=== PATIENT | female | born 1940 | race Hispanic/Latino ===

== ENCOUNTER → 2021-12-31 | Outpatient (CLI) | payer OTHER | END | disposition home or self-care (01) | LOC: RAH 10:32 | PROVIDERS: ATTEND Family Medicine | DX: Z13.6 Encounter for screening for cardiovascular disorders (principal) | CPT/HCPCS: 75571 ==

== ENCOUNTER 2025-06-09 12:29 | Emergency (ER) | payer MEDICARE, MEDICAID ==
[~2025-06-09] VITALS: Ht 162.6 cm; Wt 94.3 kg
[2025-06-09] MEDS: L.E.T. GEL 3ML SYG TP ONE (13:40)
[2025-06-09] MEDS ORDERED: BACI30OI6 TP (14:05)
--- NOTE | 2025-06-09 14:05 | ERN ---
General Chief Complaint: Laceration/Avulsion Stated Complaint: LT 3RD FINGER LAC Time Seen by MD: 12:32 Time Seen by Midlevel: 12:32 Source: patient History of Present Illness Initial Comments 84-year-old female presents to the emergency department due to laceration to the finger that occurred yesterday. Patient was closing a cabinet and caught her finger between the cabinet and drawer. Patient is on Plavix. Denies further symptoms. PMHx arthritis, DM, hypercholesterolemia, HTN. Last tetanus vaccination was three years ago. Allergies: Coded Allergies: No Known Drug Allergies (Unverified Allergy, Unknown, 06/09/25) Home Meds Active Scripts Bacitracin (Bacitracin) 500 Unit/Gram Oint...g., 1 APPL TP BID for 7 Days, #15 GM 0 Refills apply to affected area(s) Prov:OZ COLLINS 06/09/25 Past Medical History Past Medical History: Arthritis, Diabetes-Type II, High Cholesterol, Heart Disease, Hypertension Medical History Other: OSTEO Past Surgical History: Cholecystectomy ROS Dictation Constitutional: Negative for fever,chills, and weight loss Eyes: Negative for injury, pain,redness, and discharge ENT: Negative for injury,pain or swelling Cardiovascular: Negative for chest pain, palpitations, and edema Respiratory: Negative for shortness of breath, cough, and wheezing, Abdomen/GI: Negative for abdominal pain, nausea, vomiting, diarrhea, and constipation Back: Negative for injury and pain : Negative for painful urination, bleeding or discharge MS/Extremity: Negative for injury and deformity Skin: Positive for skin avulsion of the finger Negative for rash, and discolo ration. Neuro: Negative for headache, weakness, numbness, tingling, and seizure Psych: Negative for suicide ideation, homicidal ideation, and hallucinations Physical Exam Physical Exam Dictation General: awake, alert, no acute distress Head/Face: Normocephalic, atraumatic Eyes: PERRL, EOMI, normal conjunctiva ENT: oral cavity clear, oral mucosa moist Neck: Supple, normal range of motion Cardiovascular: RRR, normal S1/S2 Respiratory: CTAB, no respiratory distress Skin: Warm, dry, normal turgor, no rash. Left hand 3rd digit 3 cm skin avulsion on the distal aspect. MS/Extremity: Pulses equal, no cyanosis, neurovascular intact, FROM Neuro: COAx4, GCS 15, strength 5/5, CN 2-12 intact, normal cerebellar exam, normal gait Psych: Normal behavior, mood, and affect normal MDM MDM: Differential diagnosis: Avulsion, laceration Rationale: 84-year-old female presents to the emergency department due to laceration to the finger that occurred yesterday. Patient was closing a cabinet and caught her finger between the cabinet and drawer. Patient is on Plavix. Denies further symptoms. PMHx arthritis, DM, hypercholesterolemia, HTN. Last tetanus vaccination was three years ago. Per physical examination minimal active bleeding noted, skin avulsion measuring 3 cm of the 3rd left digit palmar distal aspect, normal range of motion of the finger, neurovascularly intact. Quick clot placed in the bleeding stopped. LFT placed for pain. Patient was educated on findings and diagnosis. Advised to follow up with PCP. Return to the emergency department for any worsening symptoms. Patient verbalized understanding. Patient stable for discharge. There are no social concerns with this patient. I independently interpreted the test that were performed, results were reviewed by me and considered findings on radiology if ordered. Medical management and examination interpretation discussions were had by me with other qualified healthcare professionals as indicated for the patient's care. ED Course Orders Procedure Category Date Status Time L.E.T. Gel 3ml Syg PHA 06/09/25 Complete (L.E.T. Gel 3ml Syg) 13:30 Current Medications Medications (Trade) Dose Ordered Sig/Cheryl Route PRN Reason Start Time Stop Time Status Last Admin Dose Admin Lidocaine/ Epinephrine (L.e.t. Gel 3ml Syg) 3 ml ONCE ONCE TP 06/09/25 13:30 06/09/25 13:31 DC 06/09/25 13:40 Vital Signs Date Time Temp Pulse Resp B/P (MAP) Pulse Ox O2 Delivery O2 Flow Rate FiO2 06/09/25 14:09 98.2 78 16 146/55 98 Room Air* 0 06/09/25 12:53 98.2 75 16 145/55 98 Room Air* 0 21 06/09/25 12:31 98.1 77 16 145/53 96 Room Air 0 DX & DISP Disposition: Discharge Departure Impression: Primary Impression: Skin avulsion Condition: Stable Scripts Bacitracin (Bacitracin) 500 Unit/Gram Oint...g. 1 APPL TP BID for 7 Days, #15 GM 0 Refills apply to affected area(s) Prov: OZ COLLINS 06/09/25 Additional Instructions: Discharge home. Rest. Follow up with primary care DrDereje in 24 hours. Return to the ER for any acute changes or worsening symptoms. If any medications were prescribed take as directed. Okay to continue home medications unless otherwise discussed during your visit in the emergency room today. Patient was also advised to follow-up with primary care physician in 1 to 2 days for continued monitoring. Referrals: ITZEL LEAL MD (PCP) I performed the substantive portion of the visit. I have reviewed and personally made and approve the management plan that is documented in the notes by myself or the IRMA. I acknowledge full responsibility for the patient's management plan. OZ COLLINS Jun 09, 2025 14:05
[2025-06-09 14:09] VITALS: BP 146/55; PULSE 78; RESP 16; TEMP 98.3; O2SAT 98
== END 2025-06-09 14:12 | disposition home or self-care (01) ==
LOC: EDH 12:29
DX: S61.213A Laceration without foreign body of left middle finger without damage to nail, initial encounter (principal); E78.00 Pure hypercholesterolemia, unspecified; E11.9 Type 2 diabetes mellitus without complications; I10 Essential (primary) hypertension; Z90.49 Acquired absence of other specified parts of digestive tract; Z79.02 Long term (current) use of antithrombotics/antiplatelets; Z79.899 Other long term (current) drug therapy; W23.0XXA Caught, crushed, jammed, or pinched between moving objects, initial encounter; Y93.89 Activity, other specified; Y92.89 Other specified places as the place of occurrence of the external cause; Y99.8 Other external cause status
CPT/HCPCS: 99282

== ENCOUNTER 2025-07-08 01:15 | Emergency (ER) | payer MEDICARE, MEDICAID ==
[~2025-07-08] VITALS: Ht 160 cm; Wt 94.3 kg
[~2025-07-08 01:15] MED LIST: BACI30OI6 TP
--- NOTE | 2025-07-08 01:44 | ERN ---
ED Note History of Present Illness Stated Complaint: C/O DIZZINESS WITH BLEEDING TO RT EAR Chief Complaint: Earache Time Seen by MD: 01:21 Dictation: 84-YEAR-OLD FEMALE PRESENTS TO ER WITH DAUGHTER COMPLAINS OF RIGHT EAR BLEEDING AND DIZZINESS. PATIENT STATES SHE WAS SITTING WATCHING TV WHEN ALL OF A SUDDEN SHE GOT DIZZY AND HAD A NAUSEA VOMITING EPISODE. THEN SHE NOTED A POP TO HER RIGHT EAR AND HAD BLEEDING FROM IT Allergies: Coded Allergies: No Known Drug Allergies (Unverified Allergy, Unknown, 06/09/25) Home Meds Active Scripts Meclizine HCl (Meclizine HCl) 25 Mg Tablet, 25 MG PO TID for vertigo, #15 TAB 0 Refills Prov:LIZBETH WESTON MD 07/08/25 Prednisone (Prednisone) 20 Mg Tablet, 1 TAB PO AD for 6 Days, #14 TAB 0 Refills TAKE 1 TAB BY MOUTH THREE TIMES PER DAY X3 DAYS, THEN TAKE 1 TAB BY MOUTH TWICE A DAY X2 DAYS, THEN TAKE 1 TAB BY MOUTH ONCE A DAY X1 DAY. Prov:LIZBETH WESTON MD 07/08/25 Cephalexin (Cephalexin) 500 Mg Tablet, 1 TAB PO TID for 10 Days, #30 TAB 0 Refills Prov:LIZBETH WESTON MD 07/08/25 Bacitracin (Bacitracin) 500 Unit/Gram Oint...g., 1 APPL TP BID for 7 Days, #15 GM 0 Refills apply to affected area(s) Prov:OZ COLLINS 06/09/25 Past Medical History Past Medical History: Arthritis, Diabetes-Type II, High Cholesterol, Hypertension Additional Past Medical Hx: OSTEO Surgical History: Cholecystectomy Family History: Negative Social History: Negative History: Not Applicable RN Note Reviewed/Agreed w/PFSH: Yes Review of System Dictation CONSTITUTIONAL: NEGATIVE FOR FEVER,CHILLS, AND WEIGHT LOSS EYES: NEGATIVE FOR INJURY, PAIN,REDNESS, AND DISCHARGE ENT: NEGATIVE FOR INJURY, POSITIVE FOR RIGHT EAR BLEEDING AND PAIN CARDIOVASCULAR: NEGATIVE FOR CHEST PAIN, PALPITATIONS, AND EDEMA RESPIRATORY: NEGATIVE FOR SHORTNESS OF BREATH, COUGH, WHEEZING, AND PLEURITIC CHEST PAIN ABDOMEN/GI: NEGATIVE FOR ABDOMINAL PAIN, DIARRHEA, AND CONSTIPATION. POSITIVE NAUSEA AND VOMITING BACK: NEGATIVE FOR INJURY AND PAIN : NEGATIVE FOR INJURY, BLEEDING AND DISCHARGE MS/EXTREMITY: NEGATIVE FOR INJURY AND DEFORMITY SKIN: NEGATIVE FOR RASH, AND DISCOLORATION NEURO: NEGATIVE FOR HEADACHE, WEAKNESS, NUMBNESS, TINGLING, AND SEIZURE. POSITIVE DIZZINESS PSYCH: NEGATIVE FOR SUICIDE IDEATION, HOMICIDAL IDEATION, AND HALLUCINATIONS ALLERGY/IMMUNOLOGY: NEGATIVE FOR HIVES, RASH, AND ALLERGIES Initial Vital Sign VS Vital Signs Date Time Temp Pulse Resp B/P (MAP) Pulse Ox O2 Delivery O2 Flow Rate FiO2 07/08/25 01:17 97.3 66 20 175/70 97 Room Air 07/08/25 01:53 0 21 Physical Exam Dictation GENERAL: AWAKE, ALERT, NAD HEAD/FACE: NORMOCEPHALIC, ATRAUMATIC EYES: PERRL, EOMI, VISION AT BASELINE ENT: ORAL CAVITY CLEAR, RIGHT TM BULGING, SWOLLEN, ABRASION NOTED WITH DRY BLOOD NECK: TRACHEA MIDLINE, SUPPLE, NO NUCHAL RIGIDITY CARDIOVASCULAR: RRR, NORMAL S1/S2, NO MRGS, NO JVD RESPIRATORY: CTAB, NO RESPIRATORY DISTRESS, NO RALES OR WHEEZES ABDOMEN: SOFT, NON-TENDER, NON-DISTENDED, NORMAL BOWEL SOUNDS, NO GUARDING OR REBOUND. SKIN: WARM, DRY, NORMAL TURGOR, NO RASH MS/EXTREMITY: PULSES EQUAL, NO CYANOSIS, NEUROVASCULAR INTACT, FROM NEURO: COAX4, GCS 15, STRENGTH 5/5 PSYCH: NORMAL BEHAVIOR, MOOD, AND AFFECT NORMAL Results (Laboratory/Radiology) Laboratory/Radiology Laboratory Tests Test 07/08/25 01:42 White Blood Count 4.2 K/uL (4.8-10.8) L Red Blood Count 2.84 MIL/uL (4.00-5.50) L Hemoglobin 9.7 g/dL (12.0-16.0) L Hematocrit 27.9 % (36-48) L Mean Corpuscular Volume 98.2 fL (79-99) Mean Corpuscular Hemoglobin 34.2 pg (27.0-33.0) H Mean Corpuscular Hemoglobin Concent 34.8 g/dL (32.0-36.0) Red Cell Distribution Width 14.1 % (11.0-15.5) Platelet Count 35 K/uL (130-400) L Mean Platelet Volume 12.2 fL (7.5-10.5) H Immature Granulocyte % (Auto) 0.2 % (0-1) Neutrophils (%) (Auto) 77.4 % (40.0-77.0) H Lymphocytes (%) (Auto) 14.4 % (21.0-51.0) L Monocytes (%) (Auto) 7.3 % (3.0-13.0) Eosinophils (%) (Auto) 0.2 % (0.0-8.0) Basophils (%) (Auto) 0.5 % (0.0-5.0) Neutrophils # (Auto) 3.3 K/uL (1.8-7.7) Lymphocytes # (Auto) 0.6 K/uL (1.0-4.8) L Monocytes # (Auto) 0.3 K/uL (0.1-1.0) Eosinophils # (Auto) 0.01 K/uL (0.00-0.70) Basophils # (Auto) 0.02 K/uL (0.00-0.20) Absolute Immature Granulocyte (auto 0.01 K/uL (0-1) Nucleated Red Blood Cells 0.0 % (0.0-0.19) Platelet Morphology Comment See comments Sodium Level 139 mmol/L (136-145) Potassium Level 4.4 mmol/L (3.5-5.1) Chloride Level 106 mmol/L (101-111) Carbon Dioxide Level 27 mmol/L (21-32) Blood Urea Nitrogen 23 mg/dL (7-18) H Creatinine 1.2 mg/dL (0.5-1.0) H Glomerular Filtration Rate Calc 45 mL/min (>90) Random Glucose 192 mg/dL (70-105) H Total Calcium 8.5 mg/dL (8.5-10.1) Total Creatine Kinase 51 U/L (21-232) Troponin I High Sensitivity 8.4 ng/L (4-50) Labs Reviewed?: Yes CT Scan Comment: REASON: dizziness ORDERING PHYSICIAN: CATINA HENNING NP PROCEDURE: HEAD WO - CT HEAD/BRAIN W/O CONTRAST EXAM: Non-contrast CT examination of the Brain CLINICAL HISTORY: Dizziness. TECHNIQUE: Thin collimated axial CT images of the brain were obtained with sagittal and coronal reformatted images also submitted. CT scan is done according to ALARA (As Low as Reasonably Achievable). CONTRAST USED: None. COMPARISON: None provided. FINDINGS: No acute intracranial abnormality is present. No acute cortical infarction, hemorrhage, mass, or mass effect. Mild to moderate generalized brain atrophy and chronic microvascular ischemic white matter disease. Nonspecific dural calcification along the frontal falx. No hydrocephalus or abnormal extra-axial fluid collections. The posterior fossa is unremarkable. The skull base and calvarium are intact. The included portions of the paranasal sinuses and mastoid air cells are clear. IMPRESSION: No acute intracranial abnormality is present. Mild to moderate generalized brain atrophy and chronic microvascular ischemic white matter disease. /[place] ED Course ED Course Orders Procedure Category Date Status Time Cbc With Differential LAB 07/08/25 Complete 01:32 Basic Metabolic Panel LAB 07/08/25 Complete 01:32 Ct Head/Brain W/O CT 07/08/25 Resulted Contrast 01:32 12 Lead Ekg Tracing- EKG 07/08/25 Logged Technical 01:33 Cardiac Panel LAB 07/08/25 Complete 01:42 Ceftriaxone 1g Vial PHA 07/08/25 Complete (Rocephine 1g Inj) 04:00 Methylprednisolone PHA 07/08/25 Complete Succ 40mg (Solu-Medro 04:00 Meclizine Hcl 12.5 Mg PHA 07/08/25 Complete (Antivert 12.5 Mg) 04:00 Current Medications Medications (Trade) Dose Ordered Sig/Cheryl Route PRN Reason Start Time Stop Time Status Last Admin Dose Admin Ceftriaxone Sodium (ROCEphine 1G INJ) 1 gm ONCE ONCE IVPB 07/08/25 04:00 07/08/25 04:01 DC 07/08/25 04:07 Meclizine HCl (ANTIvert 12.5 mg) 12.5 mg ONCE ONCE PO 07/08/25 04:00 07/08/25 04:01 DC 07/08/25 04:07 Methylprednisolone Sodium Succinate (Solu-medROL 40MG) 40 mg ONCE ONCE IVP 07/08/25 04:00 07/08/25 04:01 DC 07/08/25 04:08 Vital Signs Date Time Temp Pulse Resp B/P (MAP) Pulse Ox O2 Delivery O2 Flow Rate FiO2 07/08/25 02:55 61 15 131/61 98 Room Air* 0 21 07/08/25 01:53 98.8 65 14 158/65 99 Room Air* 0 21 07/08/25 01:17 97.3 66 20 175/70 97 Room Air 2:45 a.m. patient was signed out to me by mid-level provider to follow up on the head CT results. This is an 84-year-old female who presented to the emergency room with complaints of bleeding from the right ear and sudden pop in the right ear. Apparently she was watching TV and experienced a sudden pop and felt dizzy had nausea vomitings. Patient's daughter indicated that patient had a hearing aid in the right ear. No history of using any Q-tips or instrumentation. No headache blurred vision diplopia. Temperature 97.3 pulse 61 respirations 20 blood pressure 175 over 70 with a pulse oximetry of 97% on room air Her chronic medical problems include diabetes mellitus, hypertension, hypercholesterolemia and osteoarthritis On exam right ear shows ruptured tympanic membrane Labs reviewed CBC shows a hemoglobin of 9.7 [place] [address] white count 4.2 BNP 7 is significant for a BUN and creatinine of [address] scan of the head-no acute intracranial abnormality but age-appropriate generalized brain atrophy and white matter disease. I updated the patient's daughter and the patient on various causes of ruptured tympanic membrane and bleeding from the right ear. I explained to her that it may simply be due to pressure changes causing the eardrum rupture especially with her hearing aid in place however it is reasonable to treat with antibiotics. Since patient had dizziness and nausea vomitings symptoms, I recommended a short course of steroid and meclizine as needed. Patient has been on Plavix for reasons unknown to the daughter I recommended stopping the Plavix in view of thrombocytopenia. Patient has a primary care physician and I recommended that the daughter should take her mother to the primary care physician to follow up on repeat labs on white count and platelet count. She must hold the Plavix for now until further instructions from her primary care physician based on her platelet count Medical Decision Making MDM A 14 POINTS ROS DONE, PERTINENT POSITIVE AND NEGATIVES DESCRIBED IN HPI; ALL OTHERS NEGATIVE. TIME WAS SPENT ON COUNSELING, REVIEWING MEDICAL RECORDS, REVIEWING THE ENTIRE VISIT DOCUMENTATION (INCLUDING ANY COMMENTS THAT MAY HAVE BEEN GIVEN BY THE PATIENT I.E. THE REVIEW OF SYSTEMS) AND COORDINATION OF CARE LABS EKG AND CT HEAD ORDERED FOR PATIENT. Differential diagnosis: Ruptured tympanic membrane secondary to infection, trauma, pimple, labyrinthitis, pressure changes inside the ear versus outside Rationale: Tests considered and ordered secondary to shared decision making include: Previous outside records reviewed: Old ER visits. Risk of complication and/or morbidity or mortality of patient management: None Medications-Per medication reconciliation Need for hospitalization: Patient does not meet criteria for hospitalization. Need for emergency major/minor surgery: No There are no social concerns with this patient. Prescription drug management Prescriptions will include symptomatic care Patient's prior external medical records from other ER visits were reviewed by me as indicated. Prior testing and results from previous visits were reviewed. Prior tests were taken into account with medical decision making and resource utilization, independent historian/historians were used to obtain complete medical history. I independently interpreted the test that were performed, results were reviewed by me and considered findings on radiology if ordered. Medical management and examination interpretation discussions were had by me with other qualified healthcare professionals as indicated for the patient's care. Problem List Problem List: (1) Tympanic membrane rupture (2) Otitis interna (3) Bleeding from right ear DX & DISP Disposition: Discharge Departure Impression: Primary Impression: Tympanic membrane rupture Additional Impressions: Bleeding from right ear, Otitis interna Condition: Stable Scripts Meclizine HCl (Meclizine HCl) 25 Mg Tablet 25 MG PO TID for vertigo, #15 TAB 0 Refills Prov: LIZBETH WESTON MD 07/08/25 Prednisone (Prednisone) 20 Mg Tablet 1 TAB PO AD for 6 Days, #14 TAB 0 Refills TAKE 1 TAB BY MOUTH THREE TIMES PER DAY X3 DAYS, THEN TAKE 1 TAB BY MOUTH TWICE A DAY X2 DAYS, THEN TAKE 1 TAB BY MOUTH ONCE A DAY X1 DAY. Prov: LIZBETH WESTON MD 07/08/25 Cephalexin (Cephalexin) 500 Mg Tablet 1 TAB PO TID for 10 Days, #30 TAB 0 Refills Prov: LIZBETH WESTON MD 07/08/25 Additional Instructions: Patient and the caregiver have been informed of all the diagnostic tests and the imaging conducted during the today's visit to the emergency room and has verbalized understanding of the results I have personally reviewed and interpreted all diagnostic exams performed here in the ER today as well as the vital signs documented by the nursing staff. The patient is now being discharged to home and should follow up with the primary care physician or the specialist as directed by the ER staff. Follow-up with primary care provider in 1 to 2 days. Take medications as directed here in the emergency room. Okay to continue home medications unless otherwise discussed during your visit in the emergency room today. Return to your nearest emergency room if symptoms worsen or if there is no improvement. Call 911 if you need immediate assistance. Take Tylenol or Motrin [id number] as needed and if no contraindications are present. Increase oral hydration. A wound culture or urine culture was ordered here in the emergency room department please follow-up with primary care provider and advise them to get repeat ports from our facility. If you had any Mitchell wrap/splints that were applied here, please do not remove them until you see your primary care or specialty. Patient has been on Plavix for reasons unknown to the daughter I recommended stopping the Plavix in view of thrombocytopenia. Patient has a primary care physician and I recommended that the daughter should take her mother to the primary care physician to follow up on repeat labs on white count and platelet count. She must hold the Plavix for now until further instructions from her primary care physician based on her platelet count STOP PLAVIX FOR NOW Referrals: ITZEL LEAL MD (PCP) CATINA HENNING NP Jul 08, 2025 01:44 LIZBETH WESTON MD Jul 08, 2025 04:02
[2025-07-08 01:47] LABS: IMMATURE GRANULOCYTE ABSOLUTE 0.01 K/uL (0-1); NUCLEATED RED BLOOD CELLS 0.0 % (0.0-0.19); PLATELET COUNT (AUTO) 35 K/uL (130-400); RED BLOOD CELL COUNT(AUTO) 2.84 MIL/uL (4.00-5.50); RED CELL DISTRIBUTION WIDTH 14.1 % (11.0-15.5); WHITE BLOOD COUNT (AUTO) 4.2 K/uL (4.8-10.8)
[2025-07-08 01:58] LABS: CREATININE 1.2 mg/dL (0.5-1.0); GLOMERULAR FILTR. RATE CALC 45.0 mL/min (>90); GLUCOSE,RANDOM 192.0 mg/dL (70-105); SODIUM SERUM 139.0 mmol/L (136-145); UREA NITROGEN, BLOOD 23.0 mg/dL (7-18)
[2025-07-08 02:06] LABS: CREATINE KINASE, TOTAL 51.0 U/L (21-232)
--- NOTE | 2025-07-08 03:43 | HMCIMG ---
EXAM: Non-contrast CT examination of the Brain CLINICAL HISTORY: Dizziness. TECHNIQUE: Thin collimated axial CT images of the brain were obtained with sagittal and coronal reformatted images also submitted. CT scan is done according to ALARA (As Low as Reasonably Achievable). CONTRAST USED: None. COMPARISON: None provided. FINDINGS: No acute intracranial abnormality is present. No acute cortical infarction, hemorrhage, mass, or mass effect. Mild to moderate generalized brain atrophy and chronic microvascular ischemic white matter disease. Nonspecific dural calcification along the frontal falx. No hydrocephalus or abnormal extra-axial fluid collections. The posterior fossa is unremarkable. The skull base and calvarium are intact. The included portions of the paranasal sinuses and mastoid air cells are clear. IMPRESSION: No acute intracranial abnormality is present. Mild to moderate generalized brain atrophy and chronic microvascular ischemic white matter disease. /[place]
[2025-07-08] MEDS ORDERED: MECL-302 PO (03:57)
[2025-07-08] MEDS ORDERED: CEPH500T PO (03:57)
[2025-07-08] MEDS ORDERED: PRED20TA3 PO (03:57)
[2025-07-08] MEDS: Solu-medROL 40MG VIAL IVP ONE (04:08)
[2025-07-08 04:31] VITALS: BP 155/76; PULSE 61; RESP 13; TEMP 98.5; O2SAT 98
--- NOTE | 2025-07-08 08:54 | EKG ---
[facility] Test Date: 2025-07-08 Test Time: 01:39:44 Pat Name: MONTANA TAMAYO Department: [facility] Room: Gender: F Manager Performance: 1088 : 1940 Requested By: CATINA HENNING Order Number: [id number] Reading MD: Shakeel Overton Measurements Intervals [place] Rate: 68 P: 19 ME: 173 QRS: -44 QRSD: 127 T: 55 QT: 429 QTc: 457 Interpretive Statements Sinus rhythm Left bundle branch block No previous ECG available for comparison Electronically Signed On 07-08-2025 19:45:23 CDT by Shakeel Overton Please click the below link to view image of tracing.
== END 2025-07-08 05:03 | disposition home or self-care (01) ==
LOC: EDH 01:15
DX: H72.91 Unspecified perforation of tympanic membrane, right ear (principal); H83.01 Labyrinthitis, right ear; H92.21 Otorrhagia, right ear; E11.9 Type 2 diabetes mellitus without complications; E78.00 Pure hypercholesterolemia, unspecified; I10 Essential (primary) hypertension; M19.90 Unspecified osteoarthritis, unspecified site; Z90.49 Acquired absence of other specified parts of digestive tract
CPT/HCPCS: 99285; 96365; 70450; 96375; 82550; 84484; 80048; 85025; 36415; 93005; J2919; J0696

== ENCOUNTER 2025-07-14 12:08 | Emergency (ER) | payer MEDICARE, MEDICAID ==
[~2025-07-14] VITALS: Ht 165.1 cm; Wt 93.4 kg
[~2025-07-14 12:08] MED LIST changes: +CEPH500T PO; +MECL-302 PO; +PRED20TA3 PO
--- NOTE | 2025-07-14 12:37 | ERN ---
ED Note History of Present Illness Stated Complaint: EPIGASTRIC PAIN, N/V Chief Complaint: Abdominal Pain Time Seen by MD: 12:26 Dictation: PATIENT IS A 84-YEAR-OLD FEMALE HERE WITH HER DAUGHTER WITH COMPLAINTS OF EPIGASTRIC PAIN WITH NAUSEA VOMITING AND DIARRHEA ONSET YESTERDAY. NO CHEST PAIN NO BACK PAIN NO SOB. PATIENT HAD DAUGHTER DENY ANY FEVER CHILLS NO HISTORY OF CHRONIC DISEASE SUCH GASTRITIS PANCREATITIS. Allergies: Coded Allergies: No Known Drug Allergies (Unverified Allergy, Unknown, 06/09/25) Home Meds Active Scripts Meclizine HCl (Meclizine HCl) 25 Mg Tablet, 25 MG PO TID for vertigo, #15 TAB 0 Refills Prov:LIZBETH WESTON MD 07/08/25 Prednisone (Prednisone) 20 Mg Tablet, 1 TAB PO AD for 6 Days, #14 TAB 0 Refills TAKE 1 TAB BY MOUTH THREE TIMES PER DAY X3 DAYS, THEN TAKE 1 TAB BY MOUTH TWICE A DAY X2 DAYS, THEN TAKE 1 TAB BY MOUTH ONCE A DAY X1 DAY. Prov:LIZBETH WESTON MD 07/08/25 Cephalexin (Cephalexin) 500 Mg Tablet, 1 TAB PO TID for 10 Days, #30 TAB 0 Refills Prov:LIZBETH WESTON MD 07/08/25 Bacitracin (Bacitracin) 500 Unit/Gram Oint...g., 1 APPL TP BID for 7 Days, #15 GM 0 Refills apply to affected area(s) Prov:OZ COLLINS 06/09/25 Past Medical History Past Medical History: Arthritis, Diabetes-Type II, High Cholesterol, Hypertension Additional Past Medical Hx: OSTEO Surgical History: Cholecystectomy Family History: Negative Social History: Negative History: Not Applicable RN Note Reviewed/Agreed w/PFSH: Yes Review of System Dictation CONSTITUTIONAL: NEGATIVE EXCEPT FOR HPI HEAD/FACE: NEGATIVE EXCEPT FOR HPI EENT: NEGATIVE EXCEPT FOR HPI RESPIRATORY: NEGATIVE EXCEPT FOR HPI GASTROINTESTINAL/ABDOMINAL: NEGATIVE EXCEPT FOR HPI NAUSEA VOMITING WITH A EPIGASTRIC PAIN GENITOURINARY: NEGATIVE EXCEPT FOR HPI MUSCULOSKELETAL: NEGATIVE EXCEPT FOR HPI INTEGUMENTARY: NEGATIVE EXCEPT FOR HPI NEUROLOGICAL/PSYCH: NEGATIVE EXCEPT FOR HPI HEMATOLOGIC/LYMPHATIC: NEGATIVE EXCEPT FOR HPI ALL SYSTEMS NEGATIVE, EXCEPT NOTED ABOVE. 13 POINT REVIEW OF SYSTEMS ASSESSED AND ALL NEGATIVE EXCEPT FOR ABOVE. Initial Vital Sign VS Vital Signs Date Time Temp Pulse Resp B/P (MAP) Pulse Ox O2 Delivery O2 Flow Rate FiO2 07/14/25 12:10 98.1 79 16 117/54 97 Room Air 0 07/14/25 12:35 21 Physical Exam Dictation A NORMAL EXAM VITAL SIGNS REVIEWED GENERAL APPEARANCE: ALERT, ORIENTED X 3, MODERATE ACUTE DISTRESS, WELL DEVELOPED, NOURISHED. OBESE HEAD AND FACE: NON-TRAUMATIC. EYES: PERRL, PINK CONJUNCTIVAS, EYELID NO TRAUMA, ANTERIOR CHAMBER WITH ARCUS SENILIS. EARS: PINNAS INTACT AND NO SIGNS OF TRAUMA OR ERYTHEMA EAR CANALS CLEAR AND NO DISCHARGE TM NO ERYTHEMA NOSE: NO DISCHARGE, NO BLEEDING. OROPHARYNX: MOUTH NORMAL, TONGUE PINK, PHARYNX CLEAR,NO ERYTHEMA, TONSILS NO EXUDATES, NO ABSCESSES NOTED, MUCOUS MEMBRANE MOIST NECK: SUPPLE, NON-TENDER, NO THYROMEGALY, NO MASSES, NO JVD, NO BRUITS BREAST:DEFERRED CHEST:NO TENDERNESS, NO CREPITUS, NO PARADOXICAL MOVEMENT, NO RETRACTIONS LUNGS:CLEAR, WELL-VENTILATED, SYMMETRIC, NO RALES, NO WHEEZING, NO RHONCHI, NO STRIDOR, GOOD BREATH SOUNDS BILATERALLY HEART: REGULAR RATE, REGULAR RHYTHM, NO MURMUR, NO GALLOPS VASCULAR: NO PERIPHERAL EDEMA, ABDOMEN: SOFT, POSITIVE BOWEL SOUNDS, NONDISTENDED, NO GUARDING, EPIGASTRIC TENDERNESS WITH PERIUMBILICAL TENDERNESS, NO REBOUND, NO MASSES NO HEPATOMEGALY, NO SPLENOMEGALY, NO BYRNES'S SIGN, NO HERNIAS. RECTAL: DEFERRED GENITAL: DEFERRED NEUROLOGICAL: NORMAL SPEECH, MOTOR FUNCTION INTACT, SENSORY FUNCTION INTACT MUSCULOSKELETAL: NECK NONTENDER, FULL RANGE OF MOTION, BACK NONTENDER, FULL RANGE OF MOTION, EXTREMITIES: NONTENDER, FULL RANGE OF MOTION SKIN: COLOR PINK, DRY, NO TURGOR, NO RASH, NO LACERATIONS, NO ABRASIONS, NO CONTUSIONS. LYMPHATIC: DEFERRED Results (Laboratory/Radiology) Laboratory/Radiology Laboratory Tests Test 07/14/25 12:43 07/14/25 16:49 White Blood Count 8.4 K/uL (4.8-10.8) Red Blood Count 3.29 MIL/uL (4.00-5.50) L Hemoglobin 11.3 g/dL (12.0-16.0) L Hematocrit 31.4 % (36-48) L Mean Corpuscular Volume 95.4 fL (79-99) Mean Corpuscular Hemoglobin 34.3 pg (27.0-33.0) H Mean Corpuscular Hemoglobin Concent 36.0 g/dL (32.0-36.0) Red Cell Distribution Width 14.2 % (11.0-15.5) Platelet Count 50 K/uL (130-400) L Mean Platelet Volume 10.9 fL (7.5-10.5) H Immature Granulocyte % (Auto) 0.4 % (0-1) Neutrophils (%) (Auto) 81.0 % (40.0-77.0) H Lymphocytes (%) (Auto) 9.4 % (21.0-51.0) L Monocytes (%) (Auto) 9.0 % (3.0-13.0) Eosinophils (%) (Auto) 0.0 % (0.0-8.0) Basophils (%) (Auto) 0.2 % (0.0-5.0) Neutrophils # (Auto) 6.8 K/uL (1.8-7.7) Lymphocytes # (Auto) 0.8 K/uL (1.0-4.8) L Monocytes # (Auto) 0.8 K/uL (0.1-1.0) Eosinophils # (Auto) 0.00 K/uL (0.00-0.70) Basophils # (Auto) 0.02 K/uL (0.00-0.20) Absolute Immature Granulocyte (auto 0.03 K/uL (0-1) Nucleated Red Blood Cells 0.0 % (0.0-0.19) White Cell Morphology Comment See comments Sodium Level 139 mmol/L (136-145) Potassium Level 3.5 mmol/L (3.5-5.1) Chloride Level 105 mmol/L (101-111) Carbon Dioxide Level 25 mmol/L (21-32) Blood Urea Nitrogen 35 mg/dL (7-18) H Creatinine 1.3 mg/dL (0.5-1.0) H Glomerular Filtration Rate Calc 41 mL/min (>90) Random Glucose 230 mg/dL (70-105) H Total Calcium 8.0 mg/dL (8.5-10.1) L Troponin I High Sensitivity 11 ng/L (4-50) Lipase 31 U/L (16-77) Urine Color YELLOW (YELLOW) Urine Appearance CLEAR (CLEAR) Urine pH 5.5 (5.0-8.0) Urine Specific [place] 1.026 (1.001-1.031) Urine Protein NEGATIVE mg/dL (NEGATIVE) Urine Glucose (UA) NEGATIVE mg/dL (NEGATIVE) Urine Ketones NEGATIVE mg/dL (NEGATIVE) Urine Occult Blood NEGATIVE (NEGATIVE) Urine Nitrate NEGATIVE (NEGATIVE) Urine Bilirubin NEGATIVE mg/dL (NEGATIVE) Urine Urobilinogen 0.2 mg/dL (0.2-1.0) Urine Leukocyte Esterase 500 Justin/uL (NEGATIVE) H Urine RBC 6-10 /HPF (0-1) H Urine WBC 26-50 /HPF (0-1) H Urine Squamous Epithelial Cells MOD /HPF (0-2) Urine Non-Squamous Epithelial Cells 6 /HPF (0-2) Urine Transitional Epithelial Cells RARE /HPF (None Seen) Urine Bacteria None /HPF (None Seen) SPLEEN: The spleen is enlarged measures 15.0 with perisplenic fluid. ADRENAL GLANDS: Unremarkable. KIDNEYS, URETERS, AND BLADDER: Mild bilateral perinephric fat stranding is concerning for renal parenchymal disease. A few hypodense cysts in both kidneys largest measuring 1.4 cm in the right kidney. The kidneys appear within normal limits. There is no hydronephrosis or hydroureter. No urinary calculi are seen. STOMACH AND BOWEL: Colonic diverticulosis without diverticulitis. Unremarkable appearance of the stomach and bowel. No evidence of bowel obstruction. No evidence suggesting enteritis or colitis. APPENDIX: No evidence of acute appendicitis on CT examination. PERITONEUM: Mild free fluid. No free air. LYMPH NODES: No lymphadenopathy is evident. REPRODUCTIVE: Unremarkable as visualized. VASCULATURE: Atherosclerotic changes in the form of eccentric vessel wall calcification in the abdominal aorta and its major branches. No evidence of abdominal aortic aneurysm. BONES: Degenerative changes in the visualized spine in the form of marginal osteophytes and degenerative discs at multiple lumbar levels. No aggressive appearing osseous lesion. No acute osseous pathology evident. IMPRESSION: 1. Splenomegaly measuring 15.0 cm with perisplenic fluid. 2. Mild bilateral perinephric fat stranding, concerning for renal parenchymal disease. 3. Mild free intraperitoneal fluid. 4. No acute findings in the abdomen or pelvis. /[facility] Reviewed?: Yes EKG Comment: st Date: 2025-07-14 Test Time: 12:43:23 Pat Name: MONTANA TAMAYO Department: [facility] Room: Gender: F Document Processor: [id number] : 1940 Requested By: MALA HARRIS Order Number: [id number] Reading MD: Measurements Intervals [place] Rate: 81 P: 40 VT: 152 QRS: -48 QRSD: 129 T: 106 QT: 403 QTc: 466 Interpretive Statements Sinus rhythm Atrial premature complex Left bundle branch block No previous ECG available for comparison Please click the below link to view image of tracing. ED Course ED Course Orders Procedure Category Date Status Time Cbc With Differential LAB 07/14/25 Complete 12:36 Troponin I High LAB 07/14/25 Complete Sensitivity 12:36 Urinalysis Profile LAB 07/14/25 Complete 12:36 12 Lead Ekg Tracing- EKG 07/14/25 Complete Technical 12:36 0.9%Nacl 1000ml (Ns PHA 07/14/25 Complete 1000ml) 13:00 Morphine 2mg Syg PHA 07/14/25 Complete (Morphine 2mg Syg) 13:00 Ondansetron 4mg Inj PHA 07/14/25 Complete (Zofran 4mg Inj) 13:00 Famotidine 20mg Vial PHA 07/14/25 Complete (Pepcid 20mg Vial) 13:00 Lipase LAB 07/14/25 Complete 12:36 Basic Metabolic Panel LAB 07/14/25 Complete 12:36 Ct Abdomen/Pelvis W/O CT 07/14/25 Resulted Contrast 14:52 Straight Cath If No CPOE 07/14/25 Transmitted Void X6hrs 16:16 Culture Urine SWATHI 07/14/25 In Process 17:03 Ceftriaxone 2gm Vial PHA 07/14/25 In Process (Rocephin 2gm Inj) 17:30 Current Medications Medications (Trade) Dose Ordered Sig/Cheryl Route PRN Reason Start Time Stop Time Status Last Admin Dose Admin Ceftriaxone Sodium (Rocephin 2gm Inj) 2 gm ONCE IVPB 07/14/25 17:30 07/14/25 21:30 Famotidine (Pepcid 20mg Vial) 20 mg ONCE ONCE IV 07/14/25 13:00 07/14/25 13:03 DC 07/14/25 12:49 Morphine Sulfate (morPHINE 2MG SYG) 2 mg ONCE ONCE IVP 07/14/25 13:00 07/14/25 13:03 DC Ondansetron HCl (zoFRAN 4MG INJ) 4 mg ONCE ONCE IVP 07/14/25 13:00 07/14/25 13:03 DC 07/14/25 12:49 Sodium Chloride 1,000 ml @ 0 mls/hr ONCE ONCE IV 07/14/25 13:00 07/14/25 13:03 DC 07/14/25 12:49 Vital Signs Date Time Temp Pulse Resp B/P (MAP) Pulse Ox O2 Delivery O2 Flow Rate FiO2 07/14/25 14:57 97.9 73 14 129/56 97 Room Air* 0 21 07/14/25 12:35 97.9 76 20 115/53 96 Room Air* 0 21 07/14/25 12:10 98.1 79 16 117/54 97 Room Air 0 1610/LABS AND CAT SCAN BACK ONLY NEEDING URINE. SPOKE WITH DIRECTOR OF PROCUREMENT AND SHE SAID SHE WILL BE APPROACH PATIENT HOWEVER SHE HAS NOT HAD TO URINATE. WE WILL ORDER STRAIGHT [id number]/spoke with patient and daughter at length regarding clinical findings to include CAT scan. Patient does not want to be admitted to the hospital and daughter agrees with the. She is aware that she has a an acute cystitis with hematuria mildly dehydrated she has received fluids and antibiotics She wishes to go home and be treated to home agreed t to come HEART Score Response (Comments) Value EKG: Repolarization changes 1 Age: > 65yrs (+2) 2 Risk Factors: 3+ risk factors (+2) 2 Initial Troponin: Normal limit (0) 0 Total 5 Medical Decision Making MDM MDM: Differential diagnosis: ACS/AMI/pancreatitis/UTI/pyelonephritis/nausea vomiting/dehydration./electrolyte imbalance Rationale: Tests considered and ordered secondary to shared decision making include: EKG/labs/CT Previous outside records reviewed: Old ER visits. Risk of complication and/or morbidity or mortality of patient management: None Medications-Per medication reconciliation Need for hospitalization: Patient does not meet criteria for hospitalization. Patient refuses admission at this time wishes to be discharged home. States she is in no pain and does not want to stay in the hospital. Need for emergency major/minor surgery: No There are no social concerns with this patient. Prescription drug management Augmentin/Zofran Prescriptions will include symptomatic care Patient's prior external medical records from other ER visits were reviewed by me as indicated. Prior testing and results from previous visits were reviewed. Prior tests were taken into account with medical decision making and resource utilization, independent historian/historians were used to obtain complete medical history. I independently interpreted the test that were performed, results were reviewed by me and considered findings on radiology if ordered. Medical management and examination interpretation discussions were had by me with other qualified healthcare professionals as indicated for the patient's care. DX & DISP Disposition: Discharge Departure Impression: Primary Impression: Acute cystitis with hematuria Additional Impressions: Mild dehydration, Nausea & vomiting Condition: Stable Scripts Ondansetron (Ondansetron Odt) 4 Mg Tab.rapdis 4 MG PO Q6HPRN PRN for nausea, #16 TAB 0 Refills Prov: MALA HARRIS NP 07/14/25 Amoxicillin/Potassium Clav (Amox Tr-K Clv 875-125 mg Tab) 875 Mg-125 Mg Tablet 1 EACH PO BID for 5 Days, #10 TAB 0 Refills Prov: MALA HARRIS [employer]ACITY PLANNING ENGINEER 07/14/25 Additional Instructions: Follow-up with primary care provider in 1 to 2 days. Take medications as directed here in the emergency room. Okay to continue home medications unless otherwise discussed during your visit in the emergency room today. Return to [facility] emergency room if symptoms worsen or if there is no improvement. Call 911 if you need immediate assistance. Take Tylenol or Motrin [id number] as needed and if no contraindications are present. Increase oral hydration. A wound culture or urine culture was ordered here in the emergency room department please follow-up with primary care provider and advise them to get repeat ports from our facility. If you had any Mitchell wrap/splints that were applied here, please do not remove them until you see your primary care or specialty. Take antibiotics as directed until gone starting tomorrow. Increase water intake. Follow up with your primary care doctor in the next two days for follow up and management Referrals: ITZEL LEAL MD (PCP) Time of Disposition: 17:46 I have reviewed the case, and I agree with, Diagnosis and Plan MALA HARRIS NP Jul 14, 2025 12:37
[2025-07-14] MEDS: FAMOTIDINE 20MG VIAL IV ONE (12:49)
[2025-07-14] MEDS: 0.9%NACL 1000ML 1,000 ML IV ONE (12:49)
[2025-07-14 12:50] LABS: IMMATURE GRANULOCYTE ABSOLUTE 0.03 K/uL (0-1); NUCLEATED RED BLOOD CELLS 0.0 % (0.0-0.19); PLATELET COUNT (AUTO) 50 K/uL (130-400); RED BLOOD CELL COUNT(AUTO) 3.29 MIL/uL (4.00-5.50); RED CELL DISTRIBUTION WIDTH 14.2 % (11.0-15.5); WHITE BLOOD COUNT (AUTO) 8.4 K/uL (4.8-10.8)
[2025-07-14 12:56] LABS: CREATININE 1.3 mg/dL (0.5-1.0); GLOMERULAR FILTR. RATE CALC 41.0 mL/min (>90); GLUCOSE,RANDOM 230.0 mg/dL (70-105); SODIUM SERUM 139.0 mmol/L (136-145); UREA NITROGEN, BLOOD 35.0 mg/dL (7-18)
--- NOTE | 2025-07-14 13:36 | NUR ---
PT REFUSED MORPHINE 2MG IV PT DENIES ABD PAIN
--- NOTE | 2025-07-14 14:35 | EKG ---
[facility] Test Date: 2025-07-14 Test Time: 12:43:23 Pat Name: MONTANA TAMAYO Department: [facility] Room: Gender: F Criminal Investigator: [id number] : 1940 Requested By: MALA HARRIS Order Number: [id number] Reading MD: Radha Valladares Measurements Intervals [place] Rate: 81 P: 40 AL: 152 QRS: -48 QRSD: 129 T: 106 QT: 403 QTc: 466 Interpretive Statements Sinus rhythm Atrial premature complex Left bundle branch block Compared to ECG 07/08/2025 01:39:44 Atrial premature complex(es) now present Electronically Signed On 07-15-2025 14:07:39 CDT by Radha Valladares Please click the below link to view image of tracing.
--- NOTE | 2025-07-14 15:54 | HMCIMG ---
EXAM: CT Abdomen and Pelvis Without IV contrast CLINICAL HISTORY: EPIGASTRIC AND PERIUMBILICAL PAIN TENDERNESS. TECHNIQUE: Axial computed tomography images of the abdomen and pelvis without intravenous contrast. CONTRAST: No IV contrast. COMPARISON: None provided. FINDINGS: LUNG BASES: Dependent airway disease along bilateral lower lobes, presumed to represent basal atelectasis. No pleural effusions are seen. LIVER: Unremarkable. GALLBLADDER AND BILE DUCTS: The gallbladder appears within normal limits. No radioopaque gallstones are seen. No biliary ductal dilatation is evident. PANCREAS: Unremarkable. SPLEEN: The spleen is enlarged measures 15.0 with perisplenic fluid. ADRENAL GLANDS: Unremarkable. KIDNEYS, URETERS, AND BLADDER: Mild bilateral perinephric fat stranding is concerning for renal parenchymal disease. A few hypodense cysts in both kidneys largest measuring 1.4 cm in the right kidney. The kidneys appear within normal limits. There is no hydronephrosis or hydroureter. No urinary calculi are seen. STOMACH AND BOWEL: Colonic diverticulosis without diverticulitis. Unremarkable appearance of the stomach and bowel. No evidence of bowel obstruction. No evidence suggesting enteritis or colitis. APPENDIX: No evidence of acute appendicitis on CT examination. PERITONEUM: Mild free fluid. No free air. LYMPH NODES: No lymphadenopathy is evident. REPRODUCTIVE: Unremarkable as visualized. VASCULATURE: Atherosclerotic changes in the form of eccentric vessel wall calcification in the abdominal aorta and its major branches. No evidence of abdominal aortic aneurysm. BONES: Degenerative changes in the visualized spine in the form of marginal osteophytes and degenerative discs at multiple lumbar levels. No aggressive appearing osseous lesion. No acute osseous pathology evident. IMPRESSION: 1. Splenomegaly measuring 15.0 cm with perisplenic fluid. 2. Mild bilateral perinephric fat stranding, concerning for renal parenchymal disease. 3. Mild free intraperitoneal fluid. 4. No acute findings in the abdomen or pelvis. /Felicity
[2025-07-14 17:00] LABS: APPEARANCE,URINE CLEAR (CLEAR); GLUCOSE, URINE (UA) NEGATIVE (NEGATIVE); LEUKOCYTE ESTERASE ,URINE 500 Leu/uL (NEGATIVE); NITRATE,URINE NEGATIVE (NEGATIVE); OCCULT BLOOD,URINE NEGATIVE (NEGATIVE)
[2025-07-14 17:03] LABS: ADD UA MICROSCOPIC YES
[2025-07-14 17:12] LABS: NON-SQUAMOUS EPITHELIAL CELL 6 /HPF (0-2); SQUAMOUS EPITHELIAL CELL,UR MOD /HPF (0-2)
[2025-07-14] MEDS ORDERED: AMOX1TAB16 PO (17:47)
[2025-07-14] MEDS ORDERED: ONDA-243 PO (17:47)
[2025-07-14 18:56] VITALS: BP 127/51; PULSE 75; RESP 16; TEMP 97.9; O2SAT 97
== END 2025-07-14 19:03 | disposition home or self-care (01) ==
LOC: EDH 12:08
DX: N30.01 Acute cystitis with hematuria (principal); E86.0 Dehydration; R11.2 Nausea with vomiting, unspecified; E11.9 Type 2 diabetes mellitus without complications; E78.00 Pure hypercholesterolemia, unspecified; M19.90 Unspecified osteoarthritis, unspecified site; I10 Essential (primary) hypertension; Z90.49 Acquired absence of other specified parts of digestive tract
CPT/HCPCS: 99285; 74176; 96365; 96375; 96361; 84484; 80048; 83690; 85025; 87086; 81001; 36415; 93005; J3490; J2270; J7030; J0696; J2405